=== PATIENT | female | born 1970 | race Caucasian/White ===

== ENCOUNTER 2019-09-09 12:49 | Outpatient (CLI) | payer BC, OTHER ==
[2019-09-09] MEDS ORDERED: LACT1CAP20 PO (13:53)
[2019-09-09] MEDS ORDERED: ERGO500017 PO (13:53)
[2019-09-09] MEDS ORDERED: CALC-534 PO (13:53)
[2019-09-09] MEDS ORDERED: CETI10TA76 PO (13:53)
[2019-09-09] MEDS ORDERED: LEVO137T2 PO (13:53)
[2019-09-09] MEDS ORDERED: Magnesium PO (13:53)
[2019-09-09 13:54] LABS: BASOPHILS # (AUTO) 0.02 x10^3/uL (0-0.1); BASOPHILS % (AUTO) 1 % (0-1); EOSINOPHILS # (AUTO) 0.09 x10^3/uL (0-0.4); EOSINOPHILS % (AUTO) 2 % (1-7); LYMPHOCYTES # (AUTO) 1.09 x10^3/uL (1-3.4); LYMPHOCYTES % (AUTO) 25 % (22-44); MD NO; MEAN CORPUSCULAR HEMOGLOBIN 30.1 pg (27.0-34.8); MEAN CORPUSCULAR HGB CONC 33.2 g/dL (32.4-35.8); MEAN PLATELET VOLUME 8.4 fL (7.4-10.4); MONOCYTES # (AUTO) 0.39 x10^3/uL (0.2-0.8); MONOCYTES % (AUTO) 9 % (2-9); NEUTROPHILS # (AUTO) 2.85 x10^3/uL (1.8-6.8); NEUTROPHILS % (AUTO) 64 % (42-75); PLATELET COUNT 191 x10^3/uL (130-400); RED BLOOD COUNT 4.63 x10^6/uL (3.82-5.3); RED CELL DISTRIBUTION WIDTH 13.8 % (9.6-15.2)
[2019-09-09] MEDS ORDERED: ALBU8.5H8 IH (13:54)
[2019-09-09 14:03] LABS: ALBUMIN 3.7 g/dL (3.4-5.0); ANION GAP 5 mmol/L (5-15); CALCIUM 8.4 mg/dL (8.5-10.1); CHLORIDE 111 mmol/L (98-107)
[2019-09-09 14:05] LABS: MICROSCOPIC NOT IND
[2019-09-09 14:08] LABS: ALANINE AMINOTRANSFERASE 21 U/L (12-78); ALKALINE PHOSPHATASE 63 U/L (45-117); BILIRUBIN,TOTAL 0.6 mg/dL (0.2-1.0); CREATININE 0.92 mg/dL (0.55-1.02); TOTAL PROTEIN 7.4 g/dL (6.4-8.2)
== END 2019-09-09 23:59 | disposition home or self-care (01) ==
LOC: STAR 12:49
PROVIDERS: ATTEND Obstetrics & Gynecology Gynecology
DX: Z01.818 Encounter for other preprocedural examination (principal); N94.5 Secondary dysmenorrhea; N92.0 Excessive and frequent menstruation with regular cycle; N94.10 Unspecified dyspareunia
CPT/HCPCS: 36415; 80053; 81003; 84703; 85025

== ENCOUNTER 2019-09-20 07:53 | Day surgery (SDC) | payer BC, OTHER ==
[~2019-09-20] VITALS: Ht 162.6 cm; Wt 91.1 kg
[~2019-09-20 07:53] MED LIST: ALBU8.5H8 IH; CALC-534 PO; CETI10TA26 PO; ERGO500017 PO; LACT1CAP20 PO; LEVO137T2 PO; Magnesium PO
[2019-09-20] MEDS ORDERED: CHLORHEXIDINE 15 ML UDC MM STA (08:22)
[2019-09-20] MEDS ORDERED: LACTATED RINGERS 1,000 ML IV SCH (08:22)
[2019-09-20] MEDS ORDERED: LIDOCAINE-MPF 1%, 2ML INFIL STA (08:22)
[2019-09-20 08:25] VITALS: BP 109/74
[2019-09-20 08:45] LABS: HCG UR SG 1.004 (1.003-1.030)
[2019-09-20] MEDS ORDERED: MIDAZOLAM 1 MG/ML, 2ML ONE (08:55)
[2019-09-20] MEDS ORDERED: PROPOFOL 150 ML ONE (08:56)
[2019-09-20] MEDS ORDERED: FENTANYL PF 250 MCG/5ML ONE (08:56)
[2019-09-20] MEDS ORDERED: GABAPENTIN 300 MG CAPSULE ONE (09:18)
[2019-09-20] MEDS ORDERED: ACETAMINOPHEN 500 MG TABLET ONE (09:18)
[2019-09-20] MEDS ORDERED: LIDOCAINE 1%-EPI 1:100K, 20ML ONE (09:20)
[2019-09-20] MEDS ORDERED: INDIGO CARMINE 0.8%, 5ML ONE (09:20)
[2019-09-20] MEDS ORDERED: SCOPOLAMINE 1MG PATCH TD ONE (09:25)
[2019-09-20] MEDS ORDERED: SUGAMMADEX 200 MG/2 ML IVPush ONE (10:57)
[2019-09-20] MEDS ORDERED: KETOROLAC 30 MG/1 ML ONE (10:58)
[2019-09-20] MEDS ORDERED: FENTANYL PF 100 MCG/2ML ONE (11:20)
[2019-09-20] MEDS ORDERED: OXYcodone 5 MG/5 ML ORAL.SOL UDC ONE (11:21)
[2019-09-20] MEDS ORDERED: CEFAZOLIN 1,000 MG ONE (11:33)
[2019-09-20] MEDS ORDERED: ONDANSETRON 2MG/ML, 2ML ONE (11:33)
[2019-09-20] MEDS ORDERED: DEXAMETHASONE 4 MG/ML, 1ML ONE (11:33)
[2019-09-20] MEDS ORDERED: SUCCINYLCHOLINE 20 MG/ML, 10ML ONE (11:33)
[2019-09-20] MEDS ORDERED: ROCURONIUM 10MG/ML,5ML ONE (11:33)
[2019-09-20] MEDS ORDERED: NEOSTIGMINE 1 MG/ML, 10ML ONE (11:33)
[2019-09-20] MEDS ORDERED: PROPOFOL 10 MG/ML, 20ML ONE (11:33)
[2019-09-20] MEDS ORDERED: GLYCOPYRROLATE 0.2MG/1ML, 5ML ONE (11:33)
[2019-09-20] MEDS ORDERED: HYDROcodone/APAP 7.5-325MG/15ML UDC ONE (11:45)
[2019-09-20] MEDS ORDERED: PROMETHAZINE 25 MG/ML, 1ML IV PRN (12:00)
[2019-09-20] MEDS ORDERED: ALBUTEROL SULFATE 2.5 MG/3 ML NPPB PRN (12:00)
[2019-09-20] MEDS ORDERED: DIAZEPAM 5 MG/ML, 2ML IVPush PRN (12:00)
[2019-09-20] MEDS ORDERED: HYDROcodone/APAP 7.5-325MG/15ML UDC PO PRN (12:00)
[2019-09-20] MEDS ORDERED: MEPERIDINE/PF 25MG/0.5ML IVPush PRN (12:00)
[2019-09-20] MEDS ORDERED: LABETALOL 5MG/ML, 20ML IV PRN (12:00)
[2019-09-20] MEDS ORDERED: HYDROmorphone 2 MG/ML, 1ML IVPush PRN (12:00)
[2019-09-20] MEDS ORDERED: OXYcodone 5 MG/5 ML ORAL.SOL UDC PO PRN (12:00)
[2019-09-20] MEDS: FENTANYL PF 100 MCG/2ML IV PRN ×2 (12:00→12:05)
[2019-09-20] MEDS ORDERED: hydrALAzine 20 MG/ML, 1ML IV PRN (12:00)
[2019-09-20] MEDS ORDERED: PROMETHAZINE 25 MG/ML, 1ML ONE (12:08)
== END 2019-09-20 16:10 | disposition home or self-care (01) ==
LOC: OUT 07:53
PROVIDERS: ATTEND Obstetrics & Gynecology Gynecology
DX: N94.6 Dysmenorrhea, unspecified (principal); Z11.59 Encounter for screening for other viral diseases; N80.0 Endometriosis of uterus; N81.10 Cystocele, unspecified; N72 Inflammatory disease of cervix uteri; N94.12 Deep dyspareunia; Z79.890 Hormone replacement therapy; Z79.899 Other long term (current) drug therapy; Z88.2 Allergy status to sulfonamides; Z88.8 Allergy status to other drugs, medicaments and biological substances
CPT/HCPCS: 36415; 58552; 81025; 85014; 87635; 88307; J0330; J0690; J1100; J1885; J2250; J2405; J2550; J2704; J2710; J3010; J3490; J7120